=== PATIENT | female | born 1965 | race Two or more races ===

== ENCOUNTER 2019-06-24 05:55 | Day surgery (SDC) | payer OTHER | END 2019-06-24 13:30 | disposition home or self-care (01) | LOC: CIR.AMB 05:55 | DX: D26.1 Other benign neoplasm of corpus uteri (principal) ==

== ENCOUNTER 2024-09-22 11:44 | Inpatient (IN) | payer OTHER ==
[~2024-09-22] VITALS: Ht 149.9 cm; Wt 90.7 kg
[2024-09-23 15:59] VITALS: BP 128/76
[2024-10-07] MEDS ORDERED: POVIDONE-IODINE 118 ML BOTT TOP ONE (09:47)
[2024-10-07] MEDS ORDERED: CEFAZOLIN SODIUM 1,000 MG VIAL IV SCH ×2 (10:45→14:00)
[2024-10-07] MEDS ORDERED: SUGAMMADEX SODIUM 200 MG/2 ML VIAL IV ONE (11:07)
[2024-10-07] MEDS ORDERED: MORPHINE SULFATE 4 MG/ML CARTRIDGE IV PRN (12:45)
[2024-10-07] MEDS ORDERED: MORPHINE SULFATE 4 MG/ML VIAL IV ONE (13:20)
[2024-10-07] MEDS ORDERED: CEFAZOLIN SODIUM 1,000 MG VIAL ONE (15:49)
[2024-10-07 16:15] VITALS: BP 128/76
[2024-10-07 17:34] VITALS: BP 128/76
[2024-10-08 00:02] VITALS: BP 131/66
[2024-10-08 02:57] LABS: BASO % 0.3 % (0.1-1.2); EOS # 0.01 (0.04-0.54); EOS % 0.1 % (0.7-7.0); LYMPH # 2.43 (1.18-3.74); LYMPH % 20.3 % (19.3-53.1); MEAN PLATELET VOLUME 12.30 fl (9.4-12.4); MONO # 1.19 (0.24-0.82); MONO % 9.9 % (4.7-12.5); NEUT # 8.27 (1.56-6.13); NEUT % 69.1 % (34.0-71.1); RED CELL DISTRIBUTION WIDTH 12.3 % (11.6-14.4)
[2024-10-08 04:30] VITALS: BP 129/72
[2024-10-08 08:00] VITALS: BP 125/66
[2024-10-08] MEDS ORDERED: ACETAMINOPHEN WITH CODEINE 1 UDTAB TABLET PO PRN (12:45)
[2024-10-08 17:15] VITALS: BP 111/71
[2024-10-09] VITALS: BP 101/67
[2024-10-09 08:50] VITALS: BP 118/79
[2024-10-09 16:38] VITALS: BP 97/58
[2024-10-10] VITALS: BP 89/60
[2024-10-10] MEDS ORDERED: IBUPROFEN800 MG PO (07:19)
[2024-10-10 08:00] VITALS: BP 129/78
== END 2024-10-10 08:30 | disposition home or self-care (01) | DRG 743 ==
LOC: SURH 09-30 08:30 → O/R 10-07 08:00 → OB/GYN 10-07 08:00
PROVIDERS: ADMIT Specialist; ATTEND Specialist
PROC: 0UT70ZZ Resection of Bilateral Fallopian Tubes, Open Approach (ICD-10-PCS; 2024-10-07)
PROC: 0UT20ZZ Resection of Bilateral Ovaries, Open Approach (ICD-10-PCS; 2024-10-07)
PROC: 0UT90ZZ Resection of Uterus, Open Approach (ICD-10-PCS; principal; 2024-10-07 07:00)
DX: D25.1 Intramural leiomyoma of uterus (principal); N84.0 Polyp of corpus uteri; N80.03 Adenomyosis of the uterus; N92.1 Excessive and frequent menstruation with irregular cycle; Z90.710 Acquired absence of both cervix and uterus

== ENCOUNTER 2024-09-28 10:53 | Outpatient (CLI) | payer OTHER | END 2024-09-28 11:04 | disposition home or self-care (01) | LOC: SONOGRAMA 10:53 | PROVIDERS: ATTEND Specialist | DX: N85.00 Endometrial hyperplasia, unspecified (principal) ==